=== PATIENT | male | born 1975 | race Hispanic/Latino ===

== ENCOUNTER 2017-09-02 22:47 | Emergency (ER) | payer SELFPAY ==
[2017-09-02 22:57] VITALS: BP 113/66; PULSE 84; RESP 18; TEMP 98.2; O2SAT 99
[2017-09-02] MEDS ORDERED: Magnesium Citrate Oral SOL (300 ml) PO ONE (23:28)
--- NOTE | 2017-09-02 23:28 | ED PDOC ---
HPI: Abdomen Time Seen by Provider: 09/02/17 23:00 Chief Complaint (Nursing): Abdominal Pain Chief Complaint (Provider): abdominal discomfort History Per: Patient History/Exam Limitations: no limitations Onset/Duration Of Symptoms: Days (2), Gradual, Persistent Location Of Pain/Discomfort: Diffuse Associated Symptoms: Nausea, Constipation. denies: Fever, Chills, Vomiting, Diarrhea, Loss Of Appetite Additional Complaint(s): Pt feels abd bloating progressively for one day. Radiation into chest. Also reports constipation for two days. Took poncho selter with no relief Normal appetite, no fever, no chills, no black or bloody stool. Past Medical History Reviewed: Historical Data, Nursing Documentation, Vital Signs Vital Signs: Last Vital Signs Temp 98.2 F 09/02/17 22:55 Pulse 84 09/02/17 22:55 Resp 18 09/02/17 22:55 BP 113/66 09/02/17 22:55 Pulse Ox 99 09/02/17 22:55 - Medical History Other PMH: Low testosterone. Recently taking testosterone injections and now hcg suppl - Surgical History Other surgeries: Eyes, ears, tonsils - Family History Family History: States: No Known Family Hx - Social History Current smoker - smoking cessation education provided: No Alcohol: Social Drugs: Denies - Home Medications Home Medications: Ambulatory Orders Medication Instructions Recorded Ondansetron ODT [Zofran ODT] 1 odt PO Q6 PRN #20 odt 09/02/17 Polyethylene Glycol 3350 [Miralax] 17 gm PO DAILY PRN #1 bottle 09/02/17 - Allergies Allergies/Adverse Reactions: Allergies Allergy/AdvReac Type Severity Reaction Status Date / Time No Known Allergies Allergy Verified 09/02/17 22:54 Review of Systems ROS Statement: Except As Marked, All Systems Reviewed And Found Negative (and as per HPI) Constitutional: Negative for: Fever, Chills Gastrointestinal: Positive for: Nausea, Abdominal Pain, Constipation. Negative for: Vomiting, Diarrhea, Melena, Hematochezia, Hematemesis, Rectal Pain Physical Exam - Reviewed Nursing Documentation Reviewed: Yes Vital Signs Reviewed: Yes - Physical Exam Appears: Positive for: Non-toxic, No Acute Distress Head Exam: Positive for: ATRAUMATIC, NORMOCEPHALIC Skin: Positive for: Warm, Dry Eye Exam: Positive for: EOMI, PERRL ENT: Negative for: Pharyngeal Erythema, Tonsillar Exudate Neck: Positive for: Painless ROM, Supple Cardiovascular/Chest: Positive for: Regular Rate, Rhythm. Negative for: Murmur Respiratory: Positive for: Normal Breath Sounds. Negative for: Wheezing Gastrointestinal/Abdominal: Positive for: Soft. Negative for: Tenderness, Mass , Distended, Guarding, Rebound Back: Positive for: Normal Inspection. Negative for: Decreased ROM Extremity: Positive for: Normal ROM. Negative for: Deformity Lymphatic: Negative for: Adenopathy Neurologic/Psych: Positive for: Alert. Negative for: Motor/Sensory Deficits - ECG O2 Sat by Pulse Oximetry: 99 Medical Decision Making Medical Decision Making: Abdominal discomfort with constipation and benign exam findings. DW pt possibilities and pt wants to try constipation medications and follow up. Abd xray: NSBGP, no AF levels, no bowel distension Disposition - Clinical Impression Clinical Impression: Abdominal pain Counseled Patient/Family Regarding: Studies Performed, Diagnosis - Disposition Referrals: [facility] [place] [Outside] [facility] [Outside] Disposition: Routine/Home Disposition Time: 23:29 Condition: STABLE Prescriptions: Ondansetron ODT [Zofran ODT] 1 odt PO Q6 PRN #20 odt PRN Reason: Nausea/Vomiting Polyethylene Glycol 3350 [Miralax] 17 gm PO DAILY PRN #1 bottle PRN Reason: Constipation Instructions: Acute Abdomen (Belly Pain), Constipation in Adults Forms: [facility] (Croatian)
[2017-09-02] MEDS ORDERED: Magnesium Citrate Oral SOL (300 ml) ONE (23:29)
--- NOTE | 2017-09-03 09:44 | RAD ---
PROCEDURE: Radiographs of the chest and abdomen (obstructive series) HISTORY: Abdominal distension COMPARISON: No prior. TECHNIQUE: AP radiograph of the chest, with upright and supine radiographs of the abdomen. FINDINGS: CHEST: Lungs: The lungs are well inflated and clear. Cardiovascular: Normal size heart. No pulmonary vascular congestion. Pleura: No pleural fluid. No pneumothorax. Other findings: None. ABDOMEN AND PELVIS: Bowel: Bowel gas pattern is nonspecific. No bowel dilatation the differential air-fluid levels. Free air: None. Bones: Unremarkable. Other findings: None. IMPRESSION: Nonspecific nonobstructive bowel gas pattern. Clear lungs.
== END 2017-09-02 23:35 | disposition home or self-care (01) ==
LOC: H.ER 22:47
DX: K59.00 Constipation, unspecified (principal)

== ENCOUNTER 2017-09-04 19:28 | Emergency (ER) | payer BC ==
[2017-09-04 20:26] VITALS: O2SAT 100
--- NOTE | 2017-09-04 21:37 | ED PDOC ---
HPI: Abdomen Time Seen by Provider: 09/04/17 21:12 Chief Complaint (Nursing): Abdominal Pain Chief Complaint (Provider): Abdominal bloating History Per: Patient History/Exam Limitations: no limitations Additional Complaint(s): Pt returns to ED for abdominal bloating. Was evaluated in ED 2 days ago for same, XR negative, given Mag citrate on discharge but bloating continues, associated with minimal nausea. Denies fever, vomiting, constipation, diarrhea , sxs. Last BM today. Past Medical History Reviewed: Nursing Documentation, Vital Signs Vital Signs: Last Vital Signs Temp 98.2 F 09/04/17 20:23 Pulse 54 L 09/04/17 20:23 Resp 16 09/04/17 20:23 BP 127/72 09/04/17 20:23 Pulse Ox 100 09/05/17 00:04 - Medical History PMH: No Chronic Diseases - Surgical History Surgical History: No Surg Hx - Family History Family History: States: Unknown Family Hx - Living Arrangements Living Arrangements: With Family - Social History Current smoker - smoking cessation education provided: No Alcohol: None - Home Medications Home Medications: Ambulatory Orders Medication Instructions Recorded Ondansetron ODT [Zofran ODT] 1 odt PO Q6 PRN #20 odt 09/02/17 Polyethylene Glycol 3350 [Miralax] 17 gm PO DAILY PRN #1 bottle 09/02/17 - Allergies Allergies/Adverse Reactions: Allergies Allergy/AdvReac Type Severity Reaction Status Date / Time No Known Allergies Allergy Verified 09/02/17 22:54 Review of Systems Constitutional: Negative for: Fever, Chills Cardiovascular: Negative for: Chest Pain, Palpitations Respiratory: Negative for: Cough, Shortness of Breath Gastrointestinal: Positive for: Nausea, Abdominal Pain. Negative for: Vomiting , Diarrhea, Constipation, Hematochezia, Hematemesis Genitourinary Male: Negative for: Dysuria, Hematuria Musculoskeletal: Negative for: Back Pain Skin: Negative for: Rash, Lesions Neurological: Negative for: Headache Physical Exam - Reviewed Nursing Documentation Reviewed: Yes Vital Signs Reviewed: Yes - Physical Exam Appears: Positive for: Well, No Acute Distress Skin: Positive for: Normal Color, Warm, Dry Eye Exam: Positive for: Normal appearance, EOMI, PERRL Cardiovascular/Chest: Positive for: Regular Rate, Rhythm Respiratory: Positive for: Normal Breath Sounds. Negative for: Rales, Rhonchi, Wheezing Gastrointestinal/Abdominal: Positive for: Bowel Sounds, Soft, Tenderness ( Minimal LLQ), Mass (? LLQ). Negative for: Distended, Guarding, Rebound Back: Positive for: Normal Inspection Extremity: Positive for: Normal ROM Neurologic/Psych: Positive for: Alert, Oriented - Laboratory Results Result Diagrams: 09/04/17 21:57 09/04/17 21:57 - ECG O2 Sat by Pulse Oximetry: 100 Medical Decision Making Medical Decision Makin CT FINDINGS: Lung bases: Minimal atelectasis. Few pulmonary nodules, up to 0.3 cm. ABDOMEN: Liver: Fatty infiltration. 0.6 cm lesion with flash filling enhancement. Gallbladder and bile ducts: No calcified stones. No ductal dilation. Pancreas: No ductal dilation. No mass. Spleen: No splenomegaly. Adrenals: No mass. Kidneys and ureters: No mass. No hydronephrosis. Stomach and bowel: Moderate to large amount of stool within colon. No definite mural thickening. No obstruction. PELVIS: Appendix: Normal caliber. No definite inflammation. Bladder: Unremarkable. Reproductive: Unremarkable as visualized. ABDOMEN and PELVIS: Intraperitoneal space: No significant fluid collection. No free air. Bones/joints: No acute fracture. Soft tissues: Unremarkable. Vasculature: Unremarkable. No aneurysm. Lymph nodes: No pathologically enlarged lymph nodes. IMPRESSION: 1. No definite acute intraabdominal abnormality. 2. Pulmonary nodules. For low-risk patients, no follow-up is necessary. For high -risk patients (smoking history or other known risk factors) an optional CT at 12 months could be performed. 3. Liver lesion. For patients with low to average risk of malignancy, no further follow-up is necessary. For patients with high risk of malignancy, recommend follow-up abdominal CT or MR in 6 months or for suspicious lesions, multiphasic MR. 4. Incidental/non-acute findings are described above. [address] report given to patient, who verbalized understanding of incidental findings as well as need for close follow up. Patient stable for discharge home and agrees to follow up with PCP in 1-2 days. Dx: constipation Condition: good ~ Scribe Attestation: Documented by Cece Mendenhall, acting as a scribe for Elicia Glez MD. Provider Scribe Attestation: All medical record entries made by the Scribe were at my direction and personally dictated by me. I have reviewed the chart and agree that the record accurately reflects my personal performance of the history, physical exam, medical decision making, and the department course for this patient. I have also personally directed, reviewed, and agree with the discharge instructions and disposition. Disposition - Clinical Impression Clinical Impression: Constipation - Disposition Disposition: Routine/Home Disposition Time: 00:01 Condition: STABLE Additional Instructions: FOLLOW-UP WITH PMD WITHIN 2 DAYS FOR REEVALUATION. Instructions: Constipation in Adults Forms: [employer] (Divehi)
[2017-09-04 22:03] LABS: EOS # 0.1 K/uL (0.0-0.7); EOS % 3.2 % (0.0-4.0); HEMOGLOBIN 15.7 g/dL (12.0-18.0); LYMPH # 0.9 K/uL (1.0-4.3); LYMPH % 19.9 % (20.0-40.0); MEAN CELL VOLUME 96.7 fl (80.0-94.0); MEAN CORPUSCULAR HEMOGLOBIN 32.5 pg (27.0-31.0); MEAN CORPUSCULAR HGB CONC 33.6 g/dL (33.0-37.0); MONO # 0.7 K/uL (0.0-0.8); MONO % 15.3 % (0.0-10.0); NEUT # 2.8 K/uL (1.8-7.0); NEUT % 60.6 % (50.0-75.0); NRBC % 0.1 % (0.0-0.0); RBC 4.82 Mil/uL (4.40-5.90); RED CELL DISTRIBUTION WIDTH 13.9 % (11.5-14.5); WHITE BLOOD COUNT 4.6 K/uL (4.8-10.8)
[2017-09-04 22:10] LABS: INR 1.1 (0.9-1.2); PARTIAL THROMBOPLASTIN TIME 30.7 Seconds (25.6-37.1); PROTHROMBIN TIME 12.1 Seconds (9.8-13.1)
[2017-09-04 22:18] LABS: URINE AMORPHOUS SEDIMENT MODERATE /ul (<OCC); URINE BILIRUBIN NEGATIVE (NEGATIVE); URINE BLOOD NEGATIVE (NEGATIVE); URINE CLARITY TURBID (Clear); URINE COLOR YELLOW (YELLOW); URINE GLUCOSE (UA) NEG (Normal); URINE LEUKOCYTE ESTERASE NEG Leu/uL (Negative); URINE PROTEIN NEGATIVE (NEGATIVE); URINE UROBILINOGEN 0.2-1.0 mg/dL (0.2-1.0)
[2017-09-04 22:26] LABS: ALB/GLOB RATIO 1.4 (1.0-2.1); ALBUMIN 3.9 g/dL (3.5-5.0); ALT/SGPT 46 U/L (21-72); AST/SGOT 53 U/L (17-59); BLOOD UREA NITROGEN 17 mg/dl (9-20); CALCIUM 9.5 mg/dL (8.4-10.2); GFR AFRICAN-AMERICAN > 60; GFR NON-AFRICAN AMERICAN > 60
[2017-09-04] MEDS ORDERED: Sodium Chloride 0.9% 100 ML ONE (23:00)
[2017-09-04] MEDS ORDERED: Iohexol 300 100 ML IJ ONE (23:00)
[2017-09-04] MEDS ORDERED: Fluconazole 150 MG TAB PO STA (23:31)
--- NOTE | 2017-09-05 00:01 | CT ---
EXAM: CT Abdomen and Pelvis With Intravenous Contrast CLINICAL HISTORY: 42 years old, male; Signs and symptoms; Bloating; Additional info: Abd distension. See phy. Doc. TECHNIQUE: Axial computed tomography images of the abdomen and pelvis with intravenous contrast. All CT scans at this facility use one or more dose reduction techniques, viz.: automated exposure control; ma/kV adjustment per patient size (including targeted exams where dose is matched to indication; i.e. head); or iterative reconstruction technique. Coronal and sagittal reformatted images were created and reviewed. CONTRAST: 90 mL of [id number] administered intravenously. COMPARISON: No relevant prior studies available. FINDINGS: Lung bases: Minimal atelectasis. Few pulmonary nodules, up to 0.3 cm. ABDOMEN: Liver: Fatty infiltration. 0.6 cm lesion with flash filling enhancement. Gallbladder and bile ducts: No calcified stones. No ductal dilation. Pancreas: No ductal dilation. No mass. Spleen: No splenomegaly. Adrenals: No mass. Kidneys and ureters: No mass. No hydronephrosis. Stomach and bowel: Moderate to large amount of stool within colon. No definite mural thickening. No obstruction. PELVIS: Appendix: Normal caliber. No definite inflammation. Bladder: Unremarkable. Reproductive: Unremarkable as visualized. ABDOMEN and PELVIS: Intraperitoneal space: No significant fluid collection. No free air. Bones/joints: No acute fracture. Soft tissues: Unremarkable. Vasculature: Unremarkable. No aneurysm. Lymph nodes: No pathologically enlarged lymph nodes. IMPRESSION: 1. No definite acute intraabdominal abnormality. 2. Pulmonary nodules. For low-risk patients, no follow-up is necessary. For high-risk patients (smoking history or other known risk factors) an optional CT at 12 months could be performed. 3. Liver lesion. For patients with low to average risk of malignancy, no further follow-up is necessary. For patients with high risk of malignancy, recommend follow-up abdominal CT or MR in 6 months or for suspicious lesions, multiphasic MR. 4. Incidental/non-acute findings are described above.
[2017-09-05 00:45] VITALS: BP 125/69; PULSE 81; RESP 17; TEMP 98.1
== END 2017-09-05 00:05 | disposition home or self-care (01) ==
LOC: H.ER 19:28
DX: K59.00 Constipation, unspecified (principal); K76.9 Liver disease, unspecified
CPT/HCPCS: 74177; 80053; 81003; 85025; 85610; 85730; 99283; Q9967

== ENCOUNTER 2017-11-23 21:32 | Emergency (ER) | payer BC ==
[2017-11-23 21:32] VITALS: BMI 24.3
[2017-11-23 21:54] VITALS: BP 119/75; PULSE 68; RESP 18; O2SAT 97
[2017-11-23] MEDS ORDERED: Naproxen 500 MG TAB PO STA (22:34)
--- NOTE | 2017-11-23 23:24 | ED PDOC ---
Upper Extremity Pain/Injury Time Seen by Provider: 11/23/17 22:31 Chief Complaint (Nursing): Trauma History Per: Patient History/Exam Limitations: no limitations Additional Complaint(s): 42-year-old male who reports injuring his right thumb when he was lifting weights earlier today and a weight fell on his thumb. Otherwise: (+) bruising, (-) edema, (-) other injury, (-) numbness, (-) other complaints. Past Medical History Vital Signs: Last Vital Signs Temp 98.1 F 11/23/17 21:53 Pulse 68 11/23/17 21:53 Resp 18 11/23/17 21:53 BP 119/75 11/23/17 21:53 Pulse Ox 97 11/23/17 21:53 - Surgical History Surgical History: Denies: Pacemaker - Family History Family History: States: Unknown Family Hx - Home Medications Home Medications: Ambulatory Orders Medication Instructions Recorded Ascorbic Acid [Vitamin C 500 mg 500 mg PO DAILY 11/22/17 Tab] Milk Thistle Fruit Extract [Milk 140 mg PO DAILY 11/22/17 Thistle] [id number] Ethyl Esters [OMEGA 3] 1,000 mg PO DAILY 11/22/17 - Allergies Allergies/Adverse Reactions: Allergies Allergy/AdvReac Type Severity Reaction Status Date / Time No Known Allergies Allergy Verified 09/02/17 22:54 Review of Systems Constitutional: Negative for: Fever, Malaise Musculoskeletal: Positive for: Other (R thumb pain s/p injury). Negative for: Neck Pain, Arm Pain Skin: Negative for: Rash, Lesions Physical Exam - Physical Exam Comments: GENERAL APPEARANCE: Patient is awake, alert, oriented x 3, in no acute distress. SKIN: Warm, (-) rash, (-) lesions. UPPER EXTREMITY: (+) Mild tenderness, (-) swelling, (+) ecchymosis of R 1st digit; (-) crepitus, (-) deformity. Tendon function intact. (-) distal neurovascular deficit. 2 point discrimination. Remainder of hand, digits and wrist: (-) injury. - ECG O2 Sat by Pulse Oximetry: 97 Medical Decision Making Medical Decision Making: XR R hand: no fracture, no dislocation, as read by PA Given tylenol for pain. Orthoglass thumb spica splint applied and adjusted by PA. Neurovascular intact post splint application. Diagnostic results discussed with the patient in great detail. Diagnosis of thumb contusion discussed with the patient in great detail. Advised to follow up with primary care physician in 1-2 days without fail. Advised to take otc tylenol for pain. Return to the emergency room at any time for any new or worsening symptoms. Patient states he fully agrees with and understands discharge instructions. States that he agrees with the plan and disposition. Verbalized and repeated discharge instructions and plan. I have given the patient opportunity to ask any additional questions. Disposition - Clinical Impression Clinical Impression: Contusion of thumb, right - Patient ED Disposition Is Patient to be Admitted: No Counseled Patient/Family Regarding: Studies Performed, Diagnosis, Need For Followup - Disposition Referrals: Karan Gallagher III, MD [Staff Provider] - Disposition: Routine/Home Disposition Time: 23:20 Condition: STABLE Additional Instructions: Thank you for letting us take care of you today. You were treated for thumb contusion. The emergency medical care you received today was directed at your acute symptoms. Rest, ice and elevate. Take tylenol for pain. It may take several days for your symptoms to resolve. Return to the Emergency Department if your symptoms worsen, do not improve, or if you have any other problems. Please contact your doctor in 2 days for re-evaluation and follow up / or call one of the physicians/clinics you have been referred to that are listed on the Patient Visit Information form that is included in your discharge packet. Bring any paperwork you were given at discharge with you along with any medications you are taking to your follow up visit. Our treatment cannot replace ongoing medical care by a primary care provider (PCP) outside of the emergency department. Thank you for allowing the [facility] team to be part of your care today. If you had an X-Ray : A Radiologist will review the ED reading if any change in treatment is needed we will contact you. 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
[2017-11-23 23:48] VITALS: TEMP 98
--- NOTE | 2017-11-24 14:48 | RAD ---
PROCEDURE: Right Hand Radiographs. HISTORY: pain, injury to thumb COMPARISON: None. FINDINGS: BONES: Normal. No fracture. JOINTS: There appears to be some very minor degenerative changes at the level of the 1st MCP joint SOFT TISSUES: Normal. OTHER FINDINGS: None. IMPRESSION: No evidence acute displaced fracture nor dislocation. There appears to be some mild degenerative changes 1st MCP joint. If symptoms persist or occult fracture suspected clinically recommend followup radiographs in 7-10 days as most fractures should become radiographically evident in this timeframe Normal right hand radiographs.
== END 2017-11-23 23:42 | disposition home or self-care (01) ==
LOC: H.ER 21:32
DX: S60.011A Contusion of right thumb without damage to nail, initial encounter (principal)